=== PATIENT | male | born 1980 | race African-American/Black ===

== ENCOUNTER 2020-09-13 14:44 | Emergency (ER) | payer MEDICAID, OTHER ==
[~2020-09-13] VITALS: Ht 172.7 cm; Wt 90.0 kg
[~2020-09-13 14:44] MED LIST: ALBU2.5V13 NEB
[2020-09-13] MEDS ORDERED: IBUPROFEN 600MG TABLET PO ONE (15:30)
[2020-09-13 15:31] LABS: BASOPHILS % 0.7 % (0.0-2.0); HEMOGLOBIN. 15.1 g/dL (14.0-18.0); LYMPHOCYTES % 22.5 % (20.0-50.0); MEAN CORPUSCULAR HEMOGLOBIN 30.1 pg (28.0-32.0); MEAN CORPUSCULAR VOLUME 91.5 fL (80.0-94.0); MEAN PLATELET VOLUME 7.1 fl (7.4-10.4); MONOCYTES % 9.6 % (2.0-8.0); NEUTROPHILS % 65.2 % (40.0-76.0); PLATELET 323 x1000/uL (130-400); RED BLOOD CELL COUNT 5.03 mill/uL (4.7-6.1); RED CELL DISTRIBUTION WIDTH 14.2 % (11.6-14.6)
[2020-09-13 15:38] LABS: CHLORIDE 108 mEq/L (98-107)
[2020-09-13 15:42] LABS: ETHANOL BLOOD < 10 mg/dL
[2020-09-13 15:43] LABS: C REACTIVE PROTEIN QUANT 4.4 mg/L (0.0-3.0)
[2020-09-13 15:47] LABS: METHADONE URINE SCREEN NEGATIVE (NEGATIVE); OPIATES URINE SCREEN NEGATIVE (NEGATIVE)
[2020-09-13 15:48] LABS: *AMPHETAMINES SCREEN URINE NEGATIVE (NEGATIVE); *BARBITURATES SCREEN URINE NEGATIVE (NEGATIVE); *BENZODIAZEPINES SCREEN URINE NEGATIVE (NEGATIVE); *COCAINE SCREEN URINE NEGATIVE (NEGATIVE); CANNABINOID URINE SCREEN PRESUMTIVE POSITIVE (NEGATIVE); PHENCYCLIDINE URINE SCREEN NEGATIVE (NEGATIVE)
[2020-09-13] MEDS: LIDOCAINE 5% PATCH TOP SCH ×2 (15:56→19:47)
[2020-09-13] MEDS ORDERED: KETOROLAC 60MG/2ML VIAL IM ONE (18:00)
[2020-09-13] MEDS ORDERED: DEXAMETHASONE 4MG TABLET PO ONE (18:00)
[2020-09-13] MEDS ORDERED: BACL-141 MT (19:34)
[2020-09-13] MEDS ORDERED: LIDO700A15 TP (19:34)
[2020-09-13] MEDS ORDERED: IBUP-2029 MT (19:34)
[2020-09-13 19:57] VITALS: BP 142/83
== END 2020-09-13 20:02 | disposition home or self-care (01) ==
LOC: ER 14:44
DX: S46.819A Strain of other muscles, fascia and tendons at shoulder and upper arm level, unspecified arm, initial encounter (principal); R07.9 Chest pain, unspecified; R94.31 Abnormal electrocardiogram [ECG] [EKG]; R03.0 Elevated blood-pressure reading, without diagnosis of hypertension; J45.909 Unspecified asthma, uncomplicated; X58.XXXA Exposure to other specified factors, initial encounter; Y93.9 Activity, unspecified
CPT/HCPCS: 36415; 71045; 80053; 80305; 80320; 83690; 83880; 84484; 85025; 85651; 86140; 93005; 96372; 99285; J1885; J8540; G0480